=== PATIENT | male | born 1935 | race Caucasian/White ===

== ENCOUNTER 2016-10-06 14:38 | Outpatient (CLI) | payer MEDICARE, BC | END 2016-10-06 14:39 | disposition home or self-care (01) | DX: C18.9 Malignant neoplasm of colon, unspecified (principal); Z00.8 Encounter for other general examination ==

== ENCOUNTER 2017-04-13 17:33 | Outpatient (CLI) | payer MEDICARE, BC ==
--- NOTE | 2017-04-14 09:13 | XRAY Preliminary Report ---
Exam: XR Chest 2 View PA/LAT IMPRESSION: Developing patchy bilateral opacities suggestive of infiltrates, with underlying mass is not excluded. Findings discussed with Dr. Tracy at time of dictation on 04/14/2017 at 9:10 AM. [facility] SITE ID: [id number]
--- NOTE | 2017-04-14 09:16 | XRAY Report ---
EXAM: CHEST RADIOGRAPHY EXAM DATE: 04/13/2017 05:59 PM. CLINICAL HISTORY: COUGH. COMPARISON: Previous exam of 11/01/2010. TECHNIQUE: 2 views. FINDINGS: Lungs/Pleura: There has been interval development of patchy bilateral opacities suggestive of infiltr ates. Underlying developing masses cannot be excluded. Mediastinum: Heart and mediastinal contours are unremarkable. Other: None. IMPRESSION: Developing patchy bilateral opacities suggestive of infiltrates, with underlying mass is not excluded. Findings discussed with Dr. Tracy at time of dictation on 04/14/2017 at 9:10 AM. [facility] Referring Provider Line: [phone] SITE ID: [id number]
== END 2017-04-13 17:34 | disposition home or self-care (01) ==
LOC: DI 17:33
PROVIDERS: ATTEND Physician Assistant
DX: R91.8 Other nonspecific abnormal finding of lung field (principal)
CPT/HCPCS: 71020

== ENCOUNTER 2017-04-16 04:23 | Outpatient (CLI) | payer MEDICARE, BC | END 2017-04-16 04:24 | disposition critical access hospital (66) | LOC: EMS 04:23 | PROVIDERS: ATTEND Surgery | DX: I46.9 Cardiac arrest, cause unspecified (principal) | CPT/HCPCS: A0425; A0433 ==

== ENCOUNTER 2017-04-16 04:38 | Emergency (ER) | payer MEDICARE, BC ==
[2017-04-16] MEDS ORDERED: SODIUM CHLORIDE FLUSH 0.9% 10 ML SYRINGE IVP ONE (04:47)
[2017-04-16] MEDS ORDERED: SODIUM BICARBONATE ABBOJECT 50 MEQ/50 ML SYRINGE IVP STA (04:49)
[2017-04-16] MEDS ORDERED: EPINEPHrine ABBOJECT 1 MG/10 ML SYRINGE IVP STA (04:49)
--- NOTE | 2017-04-16 04:50 | ED Physician Documentation ---
PD HPI CPR - Stated complaint Stated Complaint: CODE BLUE - History obtained from History obtained from: EMS - History of Present Illness Timing - onset: How many minutes ago (45) Timing - onset during: Light activity (reportedly the patient was up getting to bathroom and his heard him fall. She went to room and saw him collapsed behind door. She tried to start CPR but was in cramped space. EMS says their arrival time was about 9 minutes. They found doing some CPR, and the patient was unresponsive with monitor showing asystole. ACLS done and there was transient PEA, so they continued and brought pt to ED. Resumption of asystole after just minute or so. Patient had been being treated for pneumonia. says the patient had not been complaining of chest pain.) Preceding symptoms: No: Chest pain Contributing factors: No: CAD, Diabetes Recently seen: Clinic Witnessed: Arrest witnessed Fall: Fell down Bystander CPR: Bystander CPR, Downtime before CPR (few minutes as got into the bathroom (patient was behind the door).) EMS findings: Unresponsive, Apneic, Pulseless, Asystole Treatment CORN PICKER: CPR, Intubated, Epi, Atropine Advanced directive: No advanced directive Review of Systems Unable to obtain: Unresponsive PD PAST MEDICAL HISTORY - Past Medical History Cardiovascular: Murmur, Arrhythmia Respiratory: None Endocrine/Autoimmune: None GI: Colon polyps : None HEENT: Chronic sinusitis Psych: None Musculoskeletal: Osteoarthritis, Gout Derm: None - Past Surgical History Past Surgical History: Yes General: Colonoscopy, Other HEENT: Tonsil/Adenoidectomy - Present Medications Home Medications: Ambulatory Orders Medication Instructions Recorded Confirmed Loratadine [Claritin] 12/03/13 11/24/14 Aspirin [Donovan] 12/04/13 11/24/14 Gabapentin 11/24/14 11/24/14 Rivaroxaban [Xarelto] 20 mg PO DAILY 11/24/14 11/24/14 Tamsulosin [Flomax] 11/24/14 11/24/14 - Allergies Allergies/Adverse Reactions: Allergies Allergy/AdvReac Type Severity Reaction Status Date / Time No Known Drug Allergies Allergy Verified 11/24/14 23:40 - Living Situation Living Situation: reports: With spouse/s.o. Living Arrangement: reports: At home - Social History Does the pt smoke?: No Smoking Status: Never smoker Does the pt drink ETOH?: Yes - Family History Family history: reports: Non contributory - Immunizations Immunizations are current?: Yes PD ED PE NORMAL - Vitals Vital signs reviewed: Yes - General General: Other (CPR in progress, intubated with BVM ongoing. No spontaneous movements nor breathing. ) - HEENT HEENT: Atraumatic - Respiratory Respiratory: Other (symmetric lung sounds with BVM.) - Abdomen Abdomen: Non distended - Derm Derm: No: Normal color (dusky color.) - Extremities Extremities: No edema Results - Vitals Vitals: Oxygen O2 Source Ambu bag PD MEDICAL DECISION MAKING - ED course Complexity details: considered differential (Has had 45 minute down time CORN PICKER with asystole and only 1-2 minutes of PEA. ACLS had been done CORN PICKER. Code continued in ED to obtain further info and do assessment. Here is ED, then bedside U/S done after more meds and no cardiac movement seen. Rescuscitation discontinued. ), d/w patient (talked with his after the event. ) Departure - Departure Disposition: 20 Clinical Impression: Cardiopulmonary arrest Condition: Critical Record reviewed to determine appropriate education?: Yes
== END 2017-04-16 07:19 | disposition expired ==
LOC: EDUNIT# → ED 04:38 → SUPCPDRO 04:38 → ED 07:19
DX: I46.9 Cardiac arrest, cause unspecified (principal); R01.1 Cardiac murmur, unspecified; Z79.82 Long term (current) use of aspirin
CPT/HCPCS: 92950; 99282; 99284